=== PATIENT | female | born 1980 ===

== ENCOUNTER 2017-06-17 02:22 | Emergency (ER) | payer MEDICAID ==
[2017-06-17 04:01] LABS: Basophils # (Auto) 0.1 K/mm3 (0.0-0.1); Basophils % (Auto) 0.8 % (0.0-1.8); Eosinophils # (Auto) 0.1 K/mm3 (0.0-0.4); Eosinophils % (Auto) 1.3 % (0.0-4.3); Hemoglobin 11.6 gm/dl (10.1-14.3); Lymphocytes # (Auto) 2.3 K/mm3 (1.2-5.4); Lymphocytes % (Auto) 25.4 % (13.4-35.0); Mean Corpuscular HGB Conc 32 % (30-34); Mean Corpuscular Hemoglobin 27 pg (28-32); Mean Corpuscular Volume 83 fl (79-97); Monocytes # (Auto) 0.5 K/mm3 (0.0-0.8); Monocytes % (Auto) 5.6 % (0.0-7.3); Platelet Count 337 K/mm3 (140-440); Red Blood Count 4.33 M/mm3 (3.65-5.03)
--- NOTE | 2017-06-17 05:47 | Ultrasound Report ---
FINAL REPORT EXAM: US OB < = 14 WEEKS FETUS HISTORY: Positive . Vaginal bleeding. TECHNIQUE: Directed transabdominal ultrasound examination of the pelvis was performed. No prior studies are available for comparison. FINDINGS: The patient reports her last menstrual period 03/24/2017, corresponding to current gestational age of 12 weeks, 1 day. The uterus is anteverted, and measures 9.4 x 6.8 x 12.4 cm. There is a single intrauterine gestation, with visualization of the gestational sac, yolk sac, and pole. The crown-rump length measures 5.6 cm, corresponding to gestational age of 12 weeks, 1 day (estimated due date 12/29/2017). cardiac activity is identified, with a heart rate of 150-163 beats per minute. The right ovary measures 2.4 x 2.3 x 3.2 cm, and the left ovary measures 1.8 x 1.5 x 1.9 cm. Both ovaries are normal in appearance. No other adnexal mass is seen. There is no significant pelvic free fluid. IMPRESSION: Single live intrauterine , with gestational age of 12 weeks, 1 day, as estimated by crown-rump length.
--- NOTE | 2017-06-17 10:26 | Emergency Department Report ---
ED Female HPI - General Chief complaint: Vaginal Bleeding Stated complaint: MISCARRIAGE Time Seen by Provider: 06/17/17 09:56 Source: patient, EMS Mode of arrival: Stretcher Limitations: No Limitations - History of Present Illness Initial comments: Patient is 37 years old female 9 para 5 and 3 miscarriages. Patient presented to the ER complaining of 2 day history of vaginal bleeding on and off. Patient also complaining of suprapubic pelvic pain. Patient stated that her bleeding is stopped now. Patient denied any fever, nausea or vomiting. She stated that her first OB appointment will be tomorrow with [facility]. Complaint: vaginal bleeding, pelvic pain - Related Data Allergies Allergy/AdvReac Type Severity Reaction Status Date / Time acetaminophen Allergy Itching Verified 06/17/17 03:24 [From Darvocet-N] clarithromycin [From Biaxin] Allergy Anaphylaxis Verified 06/17/17 03:24 ibuprofen Allergy Hives Verified 06/17/17 03:26 ketorolac [From Toradol] Allergy Itching Verified 06/17/17 03:27 lamotrigine [From Lamictal] Allergy Hives Verified 06/17/17 03:25 propoxyphene Allergy Itching Verified 06/17/17 03:24 [From Darvocet-N] scopolamine Allergy Itching Verified 06/17/17 03:25 sucralfate [From Carafate] Allergy Rash Verified 06/17/17 03:28 tramadol Allergy Itching Verified 06/17/17 03:27 ED Review of Systems ROS: Stated complaint: MISCARRIAGE Other details as noted in HPI Comment: All other systems reviewed and negative Constitutional: denies: chills, fever Respiratory: denies: cough, shortness of breath, SOB with exertion Cardiovascular: denies: chest pain, palpitations, dyspnea on exertion Gastrointestinal: abdominal pain. denies: nausea, vomiting Genitourinary: denies: urgency, dysuria, frequency, hematuria Neurological: denies: headache, weakness ED Past Medical Hx - Past Medical History Hx Seizures: Yes Hx Psychiatric Treatment: Yes (Anxiety, Depression) Hx Asthma: Yes Additional medical history: Chron's - Surgical History Hx Cholecystectomy: Yes Additional Surgical History: D&C, C-sections, - Social History Smoking Status: Never Smoker Substance Use Type: None ED Physical Exam - General Limitations: No Limitations General appearance: alert, in no apparent distress - Head Head exam: Present: atraumatic, normocephalic, normal inspection - Eye Eye exam: Present: normal appearance, PERRL - ENT ENT exam: Present: normal exam, normal orophraynx - Neck Neck exam: Present: normal inspection, full ROM. Absent: tenderness, meningismus - Respiratory Respiratory exam: Present: normal lung sounds bilaterally - Cardiovascular Cardiovascular Exam: Present: regular rate, normal rhythm, normal heart sounds - GI/Abdominal GI/Abdominal exam: Present: soft, normal bowel sounds. Absent: distended, tenderness, guarding, rebound, rigid - Extremities Exam Extremities exam: Present: normal inspection, full ROM, normal capillary refill - Back Exam Back exam: Present: normal inspection, full ROM. Absent: tenderness, CVA tenderness (R), CVA tenderness (L) - Neurological Exam Neurological exam: Present: alert, oriented X3, CN II-XII intact, normal gait - Skin Skin exam: Present: warm, intact, normal color ED Course Vital Signs 06/17/17 06/17/17 02:58 03:12 Temperature 98.2 F 98.2 F Pulse Rate 61 64 Respiratory 18 18 Rate Blood Pressure 113/42 113/62 O2 Sat by Pulse 96 96 Oximetry ED Medical Decision Making - Lab Data Result diagrams: 06/17/17 03:35 - Radiology Data Radiology results: report reviewed Referring Physician: JASON CORBIN Patient Name: JENNIFER LITTLEJOHN Date of : 1980 Sex: Female Report Date: 2017-06-17 Report Status: Finalized Findings [address] [address] Ultrasound Report Signed Patient: JENNIFER LITTLEJOHN MR#: [id number] : 1980 Acct:[id number] Age/Sex: 37 / F ADM Date: 06/17/17 Loc: ED Attending Dr: Ordering Physician: JASON CORBIN MD Date of Service: 06/17/17 Procedure(s): US OB <= 14 weeks fetus Accession Number(s): [id number] cc: JASON CORBIN MD FINAL REPORT EXAM: US OB lt; = 14 WEEKS FETUS HISTORY: Positive . Vaginal bleeding. TECHNIQUE: Directed transabdominal ultrasound examination of the pelvis was performed. No prior studies are available for comparison. FINDINGS: The patient reports her last menstrual period 03/24/2017, corresponding to current gestational age of 12 weeks, 1 day. The uterus is anteverted, and measures 9.4 x 6.8 x 12.4 cm. There is a single intrauterine gestation, with visualization of the gestational sac, yolk sac, and pole. The crown-rump length measures 5.6 cm, corresponding to gestational age of 12 weeks, 1 day (estimated due date 12/29/2017). cardiac activity is identified, with a heart rate of 150-163 beats per minute. The right ovary measures 2.4 x 2.3 x 3.2 cm, and the left ovary measures 1.8 x 1.5 x 1.9 cm. Both ovaries are normal in appearance. No other adnexal mass is seen. There is no significant pelvic free fluid. IMPRESSION: Single live intrauterine , with gestational age of 12 weeks, 1 day, as estimated by crown-rump length. Transcribed By: [facility] Dictated By: JOEL DELCID MD Electronically Authenticated By: JOEL DELCID MD Signed Date/Time: 06/17/17541 DD/ 1 TD/TT: 06/17/17541 Critical care attestation.: If time is entered above; I have spent that time in minutes in the direct care of this critically ill patient, excluding procedure time. ED Disposition Clinical Impression: Vaginal bleeding during Disposition: DC-01 TO HOME OR SELFCARE Is pt being admited?: No Condition: Stable Instructions: Abdominal Pain in (ED) Additional Instructions: Please follow up with her OB doctor as scheduled tomorrow. Referrals: PRIMARY CAREMD [Primary Care Provider] - 3-5 Days
[2017-06-17 12:07] VITALS: BP 98/48
== END 2017-06-17 10:35 | disposition home or self-care (01) ==
LOC: ED 02:22
DX: O20.9 Hemorrhage in early pregnancy, unspecified (principal); Z3A.14 14 weeks gestation of pregnancy; J45.909 Unspecified asthma, uncomplicated
CPT/HCPCS: 36415; 76801; 84702; 85025; 86850; 86900; 86901